=== PATIENT | female | born 1945 | race Caucasian/White ===

== ENCOUNTER 2019-06-02 10:06 | Emergency (ER) | payer OTHER ==
[~2019-06-02] VITALS: Ht 154.9 cm; Wt 68.0 kg
[2019-06-02] MEDS ORDERED: SYNTHROID50 MCG PO (10:37)
[2019-06-02] MEDS ORDERED: ULTRACET PO (14:03)
== END 2019-06-02 14:20 | disposition home or self-care (01) ==
LOC: ER 10:06
DX: M75.31 Calcific tendinitis of right shoulder (principal); M75.51 Bursitis of right shoulder; M25.511 Pain in right shoulder